=== PATIENT | male | born 1995 | race Caucasian/White ===

== ENCOUNTER 2022-03-14 12:37 | Emergency (ER) | payer OTHER ==
[~2022-03-14] VITALS: Ht 180.3 cm; Wt 90.7 kg
[2022-03-14 13:07] VITALS: BP 110/83
[2022-03-14] MEDS ORDERED: ACETAMINOPHEN 325 MG TAB PO ONE (13:20)
--- NOTE | 2022-03-14 14:00 | NUR ---
PT AMB O ER BED 10 [facility]
[2022-03-14] MEDS ORDERED: MORPHINE SULFATE 4 MG/ML SYR IM ONE (14:15)
--- NOTE | 2022-03-14 14:44 | NUR ---
26 y/o male, c/o left sided chest pain radiates to low back after fall on 02/25/22, pt states he was seen at [place] and given pain medication for management. pt states he has increased sob with pain. denies loc or syncope with fall. denies nausea, vomiting, diarrhea. skin is pink/warm/dry. a&o x4 with even and steady gait. lung sounds diminished, symmetrical rise and fall, heart rate even and regular. pt denies any fever or cough at this time. pt states pain is 7/10 at this time patient positioned for comfort. hob elevated. bed down. ermd made aware of pt. pmh: denies nka med: denies
[2022-03-14 14:50] LABS: BASOPHILS # (AUTO) 0.1 K/uL (0.00-0.22); EOSINOPHILS # (AUTO) 0.7 K/uL (0-0.4); EOSINOPHILS % (AUTO) 7.6 % (0.0-4.0); HEMOGLOBIN 19.2 g/dL (12.0-18.0); LYMPHOCYTES % (AUTO) 20.5 % (20.5-51.1); MEAN CORPUSCULAR HEMOGLOBIN 32 pg (27-31); MEAN CORPUSCULAR HGB CONC 35 g/dL (33-37); MEAN CORPUSCULAR VOLUME 92.2 fL (80-94); MONOCYTES # (AUTO) 0.6 K/uL (0.8-1.0); MONOCYTES % (AUTO) 6.3 % (1.7-9.3); NEUTROPHILS # (AUTO) 6.2 K/uL (1.8-7.7); NEUTROPHILS % (AUTO) 64.6 % (42.2-75.2); PLATELET COUNT (AUTO) 312 K/uL (140-450); RED BLOOD CELL COUNT(AUTO) 5.96 MIL/uL (4.20-6.10); RED CELL DISTRIBUTION WIDTH 12.4 % (11.6-13.7); WHITE BLOOD COUNT (AUTO) 9.7 K/uL (4.8-10.8)
[2022-03-14 15:06] LABS: ALBUMIN 4.1 g/dL (3.4-5.0); ANION GAP 15.5 (8-16); CARBON DIOXIDE 24.4 mmol/L (21-32); CREATININE 0.9 mg/dL (0.6-1.3); POTASSIUM 3.9 mmol/L (3.5-5.1); TOTAL BILIRUBIN 1.6 mg/dL (0.0-1.0)
--- NOTE | 2022-03-14 15:47 | NUR ---
PT MOVED TO ER BED1 S/P +COVID TEST, [facility]A SENT TO LAB.
[2022-03-14 17:20] VITALS: BP 122/79
--- NOTE | 2022-03-14 17:20 | NUR ---
Patient does not wish to proceed with medical care recommended by KAMALA. Patient given information related to possible complications, up to and including , which could occur as a result of leaving hospital at this time. Patient verbalizes understanding of risks involved leaving against medical advice. Patient has signed AMA form.
--- NOTE | 2022-03-14 17:25 | NUR ---
Patient does not wish to proceed with medical care recommended by DR WRAY. Patient given information related to possible complications, up to and including , which could occur as a result of leaving hospital at this time. Patient verbalizes understanding of risks involved leaving against medical advice. Patient has signed AMA form.
== END 2022-03-14 17:20 | disposition left against medical advice (07) ==
LOC: MED 12:37
DX: R07.81 Pleurodynia (principal); Z20.822 Contact with and (suspected) exposure to COVID-19; W17.89XA Other fall from one level to another, initial encounter; Y93.89 Activity, other specified; Y92.89 Other specified places as the place of occurrence of the external cause; Y99.8 Other external cause status
CPT/HCPCS: 36415; 71101; 71250; 80053; 81002; 85025; 85610; 85730; 87426; 96372; 99285; J2270